=== PATIENT | male | born 1980 | race Two or more races ===

== ENCOUNTER 2017-01-19 02:50 | Emergency (ER) | payer SELFPAY ==
[2017-01-19 03:17] VITALS: BP 142/85
[2017-01-19] MEDS ORDERED: Dexamethasone/Tobramycin 0.1-0.3% Ophth Susp 2.5 ML Bottle EARLF SCH (04:00)
[2017-01-19] MEDS ORDERED: Hydrocortisone/Neomycin/Polymyxin B Otic Susp 10 ML Bottle EARBOTH ONE ×2 (04:30)
[2017-01-19] MEDS ORDERED: Hydrocortisone/Neomycin/Polymyxin B Otic Susp 10 ML Bottle EARLF SCH (09:00)
--- NOTE | 2017-01-23 09:49 | ER ---
DATE SEEN: 01/19/2017 TIME SEEN: 0330 hours. CHIEF COMPLAINT: Left ear discomfort and a sensation that something is in his ear. 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 He then used a Q-tip to get it out. He notes there was something yellow on the Q-tip. Has no decreased hearing. He has been holding the side of his head, he feels the pain and discomfort is severe and he thinks that some piece of metal has gotten into his ear and has gotten into his brain. The patient is not on any medications. No allergies. No serious illnesses, hospitalizations, or injuries. REVIEW OF SYSTEMS: Negative. PHYSICAL EXAMINATION: VITAL SIGNS: Blood pressure 142/85, heart rate 93, respirations 18, oxygen saturation 100%, and temperature is 36.7 degrees centigrade. HEENT: The patient is holding his head and is putting pressure from his hand to his head. He asked me if I can see the dilation of veins in the left side of his head. On examination, he has no dilation of veins on the left side of his head. No temporal artery fullness or vascular changes. PERRLA intact. Pharynx without abnormality. Gag is appropriate. Uvula midline. Examination of the external ear canal reveals mild erythema in the canal. There is no traumatic injury to the ossicles of ear. No retraction. No fluid level demonstrated. No calcification or scarring in the left TM. LUNGS: Clear to auscultation. HEART: S1, S2. No murmur. ABDOMEN: Soft. No guarding. No abdominal discomfort. NEURO: Deep tendon reflexes in upper and lower extremities symmetrical, 1+ normoactive. Cranial nerves 2 through 12 intact. Oriented x3. Gait intact. Gait appropriate. No pronator drift and no paresis to upper or lower extremities. The patient states he used a Q-tip and only used it in the outer third of his ear and he was very careful not to put it deeper. ASSESSMENT: Traumatic external otitis media, with very sensitive response to the use of the applicator. No evidence for foreign body in the external canal. Two drops neomycin plus dexamethasone placed in the ear, he had immediate relief. He is all smiles. Also used the [place] acupressure technique using third and second finger of the right hand and third and second finger of the left hand, pressing it above the median forehead over the supraorbital nerves. This resulted in immediate relief of his headache and head pressure and discomfort in his ear. He was feeling great about this and he was happy and couldn't have felt better after his ear felt better. PLAN: Use the drops 2 drops 4 times a day for at least 4 days. Follow up with doctor as needed. DIAGNOSIS: Traumatic external canal irritation. /[id number] ELIJAH/VIRAL
== END 2017-01-19 04:10 | disposition home or self-care (01) ==
LOC: FB.ED 02:50
DX: H66.92 Otitis media, unspecified, left ear (principal)
CPT/HCPCS: 99282; A9270

== ENCOUNTER 2017-03-04 12:27 | Emergency (ER) | payer SELFPAY ==
--- NOTE | 2017-03-04 12:47 | EDM.PDOC ---
ED HPI GENERAL MEDICAL PROBLEM - General Stated Complaint: HEAD LACERATION Time Seen by Provider: 03/04/17 12:27 Source of Information: Reports: Patient - History of Present Illness INITIAL COMMENTS - FREE TEXT/NARRATIVE: 36 y.o.w.m. with a h/o neck pain in the past came to the ed after a head trauma while loading (?) Hay. Pt c/o severe left neck pain as well. Denies LOC. Pt noticed a bleed at his left shilpa. Pt has h/o allergic sinusitis. Pt denied any other acute medical issues. Onset: Today Onset Date: 03/04/17 Onset Time: 11:00 Duration: Minutes:, Constant Location: Reports: Head, Neck Quality: Reports: Ache, Burning, Pressure Severity: Mild Improves with: Reports: Immobilization Worsens with: Reports: Movement Context: Reports: Other (trauma at work) Associated Symptoms: Reports: No Other Symptoms (No LOC) - Related Data Allergies Allergy/AdvReac Type Severity Reaction Status Date / Time No Known Allergies Allergy Verified 03/04/17 13:08 Home Meds: Home Meds Acetaminophen/oxyCODONE [Percocet 325-5 MG] 1 each PO Q6HR PRN #12 tab 03/04/17 [Rx] Acetaminophen/oxyCODONE [Percocet 325-5 MG] 1 each PO Q6HR PRN #6 tab 03/06/17 [ Rx] Past Medical History HEENT History: Reports: None Cardiovascular History: Reports: None Respiratory History: Reports: None Gastrointestinal History: Reports: None Musculoskeletal History: Reports: Other (See Below) Other Musculoskeletal History: RECENT BACK INJURY - Infectious Disease History Infectious Disease History: Reports: Chicken Pox - Past Surgical History HEENT Surgical History: Reports: None Social & Family History - Family History Family Medical History: Noncontributory - Tobacco Use Smoking Status *Q: Current Every Day Smoker Years of Tobacco use: 5 Packs/Tins Daily: 0.5 - Caffeine Use Caffeine Use: Reports: Coffee - Recreational Drug Use Recreational Drug Use: No Review of Systems - Review of Systems Review Of Systems: See Below Constitutional: Reports: No Symptoms Eyes: Reports: No Symptoms Ears: Reports: No Symptoms Nose: Reports: No Symptoms Mouth/Throat: Reports: No Symptoms Respiratory: Reports: No Symptoms Cardiovascular: Reports: No Symptoms GI/Abdominal: Reports: No Symptoms Genitourinary: Reports: No Symptoms Musculoskeletal: Reports: No Symptoms Skin: Reports: Wound (left shilpa) Neurological: Reports: No Symptoms Psychiatric: Reports: No Symptoms ED EXAM, GENERAL - Physical Exam Exam: See Below Exam Limited By: No Limitations General Appearance: Alert, WD/WN, Mild Distress Eye Exam: Bilateral Eye: Normal Inspection Ears: Normal External Exam Ear Exam: Bilateral Ear: Auricle Normal Nose: Normal Inspection, Normal Mucosa, No Blood Throat/Mouth: Normal Inspection, Normal Lips, Normal Teeth Head: Atraumatic, Normocephalic Neck: Normal Inspection, Supple, Tender Lateral (r lat neck) Respiratory/Chest: No Respiratory Distress, Lungs Clear, Normal Breath Sounds, No Accessory Muscle Use, Chest Non-Tender Cardiovascular: Normal Peripheral Pulses, Regular Rate, Rhythm, No Edema, No Gallop Peripheral Pulses: 1+: Femoral (L), Femoral (R) GI/Abdominal: Normal Bowel Sounds, Soft, Non-Tender, No Organomegaly, No Distention, No Abnormal Bruit, No Mass (Male) Exam: Deferred Rectal (Males) Exam: Deferred Back Exam: Normal Inspection, Full Range of Motion Extremities: Normal Inspection, Normal Range of Motion, Non-Tender Neurological: Alert, Oriented, CN II-XII Intact, Normal Cognition, Normal Gait, No Motor/Sensory Deficits Psychiatric: Normal Affect, Normal Mood Skin Exam: Wound/Incision (left lat shilpa, nonbleeding) Lymphatic: No Adenopathy ED TRAUMA PROCEDURES - Laceration/Wound Repair Left Head Lac/Wound Length In cm: 3 Appearance: Subcutaneous, Mildly Contaminated Distal NVT: Neuro & Vascular Intact, No Tendon Injury Anesthetic Type: Local Local Anesthesia - Bupivicaine (Marcaine): 0.5% Plain Local Anesthetic Volume: 2cc Saline Irrigation (cc's): 5 Exploration/Debridement/Repair: Wound Explored, In a Bloodless Field, Explored to Base Closed With: [place] # of Sutures: 6 Drain Placement: No Sterile Dressing Applied: Nurse Tetanus Status Addressed: Yes Complications: No Course - Vital Signs Text/Narrative:: 36 y.o.w.m. with a h/o neck pain in the past came to the ed after a head trauma while loading (?) Hay. Pt c/o severe left neck pain as well. Denies LOC. Pt noticed a bleed at his left shilpa. Pt has h/o allergic sinusitis. Pt denied any other acute medical issues. PE: LAC left shilpa, tender r lat neck Imaging: Head and Neck CT: HeadL Mild SQ hematoma left shilpa, Bulging disc at C6 /C7 (chronic?). Official report is pending. Procedure note: Please see note above Impression: Laceration left shilpa, repaired. Bulging disc of neck (old?) Tx: wound care, Soft collar, Ice, Motrin Reexam: Improved Plan: D/C with instructions 03/06/2017: Addendum: Pt came in today 03/06/2017 10.27 am stating he lost the Percocet, did not fill it. I wrote him a new prescription for 6 tabl of percocet. Last Recorded V/S: Last Vital Signs Temp 36.8 C 03/04/17 12:50 Pulse Resp 17 03/04/17 12:50 BP 124/78 03/04/17 14:10 Pulse Ox 99 03/04/17 14:10 - Orders/Labs/Meds Meds: Medications Discontinued Medications Generic Name Dose Route Start Last Admin Trade Name Freq PRN Reason Stop Dose Admin Bupivacaine HCl 30 ml 03/04/17 14:37 03/04/17 13:45 Marcaine 0.5% INFILT 03/04/17 14:38 30 ml ONETIME ONE Administration Ibuprofen 600 mg 03/04/17 14:02 03/04/17 14:09 Motrin PO 03/04/17 14:03 600 mg ONETIME ONE Administration Departure - Departure Time of Disposition: 13:43 Disposition: Home, Self-Care 01 Condition: Good Clinical Impression: Bulging of cervical intervertebral disc without myelopathy Laceration of head Qualifiers: Encounter type: initial encounter Location of open wound of head: scalp Sinusitis Qualifiers: Sinusitis location: maxillary - Discharge Information Prescriptions: Acetaminophen/oxyCODONE [Percocet 325-5 MG] 1 each PO Q6HR PRN #12 tab PRN Reason: for severe Acetaminophen/oxyCODONE [Percocet 325-5 MG] 1 each PO Q6HR PRN #6 tab PRN Reason: for severe pain Instructions: Laceration Care, Adult, [id number] Referrals: Pedro Mendez MD [Primary Care Provider] - Vinay Perez MD [Physician] - Forms: ED Return to Work/School Form Additional Instructions: Please wear soft collar, take Motrin and Percocet as recommended, please see Dr. Perez in am, wound check in 2 days, please come back to the ed if your symptoms get worse acutely.
[2017-03-04] MEDS ORDERED: Ibuprofen 600 MG Tab PO ONE (14:02)
[2017-03-04] MEDS ORDERED: Bupivacaine 0.5% 30 ML SDV INFILT ONE (14:37)
[2017-03-04 14:48] VITALS: BP 124/78
--- NOTE | 2017-03-04 14:52 | CT ---
INDICATION: Fell, striking posterior/superior head. CT HEAD WITHOUT CONTRAST: Serial contiguous 2.5 and 5-mm sections were obtained through the brain, 03/04/2017. No comparison study was available. Total Exam DLP = 949.36 mGy-cm. There is thickening of the linings of multiple anteriorly located ethmoidal air cells and to a lesser extent posteriorly located. Thickening of the linings minimally of the sphenoidal air cells is noted along their anterior aspects, especially on the left. Thickening of the lining of the left frontal air cell at its base is noted. This appearance may be on the basis of a mild degree of sinusitis, possibly on the basis of allergic reactions. No definite cranial fracture site was identified. No shift of midline structures, ventricular abnormalities, or abnormal areas of density were identified. No bleeding site or hematoma was seen. Minimal calcifications are noted internal carotid arteries. IMPRESSION: 1. No acute intracranial abnormality. 2. No cranial fracture site. 3. Suggestion of minimal calcification in the internal carotid arteries. 4. Slight scalp soft tissue swelling overlying the left parietal area near the convexity. 5. Findings suggest the possibility of allergic sinusitis. Report was called to Dr. Goldstein at approximately 1342 hours. [facility]
--- NOTE | 2017-03-04 14:53 | CT ---
INDICATION: Fell, striking posterior/superior head. Pain at the upper posterior portion of the neck. CT CERVICAL SPINE: Spiral 2.5-mm axial sections were obtained through the cervical spine with sagittal and coronal reconstructions, 03/04/2017, and revealed the vertebral elements to be well aligned without evidence of an acute fracture or dislocation. The odontoid and atlas, as well as axis, appear to be intact. Total Exam DLP = 411.65 mGy-cm. Prevertebral space and bone density appear to be normal. Degenerative changes and disk disease are noted at C6-7 with some narrowing of the disk space and posterior bulging of the disk suggested at that level. The neural foramina appear to be fairly widely patent, however. IMPRESSION: 1. No acute fracture or dislocation. 2. Degenerative changes and disk disease C6-7. Report was called to Dr. Goldstein at 1342 hours, 03/04/2017. [facility]
== END 2017-03-04 14:20 | disposition home or self-care (01) ==
LOC: FB.ED 12:27
DX: S01.01XA Laceration without foreign body of scalp, initial encounter (principal); J32.0 Chronic maxillary sinusitis; F17.210 Nicotine dependence, cigarettes, uncomplicated; Z98.890 Other specified postprocedural states; X58.XXXA Exposure to other specified factors, initial encounter
CPT/HCPCS: 12002; 70450; 72125; 99283; A9270

== ENCOUNTER 2025-03-17 20:42 | Emergency (ER) | payer MEDICAID ==
[2025-03-17] MEDS ORDERED: Tobramycin 0.3% Ophth Drops 5 ML Bottle EYELF STA (21:13)
[2025-03-17] MEDS: Dexamethasone/Tobramycin 0.1-0.3% Ophth Susp 2.5 ML Bottle EYELF STA (21:44)
[2025-03-17 23:53] VITALS: BP 117/88; PULSE 78
== END 2025-03-17 21:50 | disposition home or self-care (01) ==
LOC: FB.ED 20:42
DX: T15.02XA Foreign body in cornea, left eye, initial encounter (principal); W44.8XXA Other foreign body entering into or through a natural orifice, initial encounter
CPT/HCPCS: 99283; A9270-GY